=== PATIENT | female | born 1975 | race American Indian/Alaskan Native ===

== ENCOUNTER 2016-11-09 09:09 | Outpatient (CLI) | payer OTHER ==
--- NOTE | 2016-11-09 11:30 | Mammography Report ---
BILATERAL MAMMOGRAM: No previous studies available. CAD study utilized. FINDINGS: Predominance of adipose tissue bilaterally. No mass or microcalcification. Benign and intramammary axillary nodes. IMPRESSION: Benign findings. Annual follow-up recommended. BI-RADS CATEGORY: 2 = Benign ACR BI-RADS MAMMOGRAPHIC CODES: 0 = Needs additional imaging evaluation; 1 = Negative; 2 = Benign; 3 = Probably benign; 4 = Suspicious; 5 = Malignant; 6 = Known biopsy-proven malignancy COMMENT: 1. Dense breast tissue, i.e., adenosis, fibrocystic changes, etc., may obscure an underlying neoplasm. 2. Approximately 10% of cancers are not detected with mammography. 3. A negative mammography report should not delay biopsy if a clinically suspicious mass is present. COMMENT: Patient follow-up letters are generated in [employer].
== END 2016-11-09 09:10 | disposition home or self-care (01) ==
LOC: MAMMO 09:09
PROVIDERS: ATTEND Obstetrics & Gynecology
DX: Z12.31 Encounter for screening mammogram for malignant neoplasm of breast (principal)
CPT/HCPCS: 77067; G0202

== ENCOUNTER 2017-11-15 12:18 | Outpatient (CLI) | payer OTHER ==
--- NOTE | 2017-11-16 11:56 | Mammography Report ---
BILATERAL DIGITAL SCREENING MAMMOGRAM with CAD: 11/15/17 12:18:00 CLINICAL: Routine screening. COMPARISON:11/09/16 FINDINGS: The breasts are heterogeneously dense, which may obscure small masses. No mass, architectural distortion or suspicious calcifications. IMPRESSION: No mammographic evidence of malignancy. BI-RADS CATEGORY: 1 - - Negative RECOMMENDATION: Routine mammographic screening in one year. COMMENT: Patient follow-up letters are generated by our [employer] application.
== END 2017-11-15 12:19 | disposition home or self-care (01) ==
LOC: MAMMO 12:18
PROVIDERS: ATTEND Obstetrics & Gynecology
DX: Z12.31 Encounter for screening mammogram for malignant neoplasm of breast (principal)
CPT/HCPCS: 77067

== ENCOUNTER 2018-12-21 07:55 | Outpatient (CLI) | payer OTHER ==
--- NOTE | 2018-12-21 09:56 | Mammography Report ---
BILATERAL MAMMOGRAM: FINDINGS: There are scattered fibroglandular densities (approximately 25%-50% glandular). No mass, distortion, suspicious calcification, or skin change is seen. There is no interval change compared to prior exams dated back to October 2016. CAD was utilized. IMPRESSION: Negative mammogram. There is no mammographic evidence of malignancy. RECOMMENDATION: Follow-up per ACS guidelines. BI-RADS CATEGORY: 1 = Negative ACR BI-RADS MAMMOGRAPHIC CODES: 0 = Needs additional imaging evaluation; 1 = Negative; 2 = Benign; 3 = Probably benign; 4 = Suspicious; 5 = Malignant; 6 = Known biopsy-proven malignancy COMMENT: 1. Dense breast tissue, i.e., adenosis, fibrocystic changes, etc., may obscure an underlying neoplasm. 2. Approximately 10% of cancers are not detected with mammography. 3. A negative mammography report should not delay biopsy if a clinically suspicious mass is present. COMMENT: Patient follow-up letters are generated in [employer].
== END 2018-12-21 07:56 | disposition home or self-care (01) ==
LOC: MAMMO 07:55
PROVIDERS: ATTEND Obstetrics & Gynecology
DX: Z12.31 Encounter for screening mammogram for malignant neoplasm of breast (principal)
CPT/HCPCS: 77067

== ENCOUNTER 2021-08-12 07:02 | Day surgery (SDC) | payer OTHER ==
[2021-08-12] MEDS ORDERED: LACTATED RINGERS 1,000 ML ONE (08:12)
[2021-08-12] MEDS ORDERED: HYDROmorphone 1 MG/1 ML INJ IV PRN ×2 (08:13)
[2021-08-12] MEDS ORDERED: ONDANSETRON 4 MG/2 ML INJ IV PRN (08:13)
--- NOTE | 2021-08-12 08:13 | Anesthesia Day of Surgery ---
Anesthesia Day of Surgery - Day of Surgery Patient Examined: Yes Patient H&P Reviewed: Yes Patient is NPO: Yes
--- NOTE | 2021-08-12 08:14 | Anesthesia Consultation ---
Anesthesia Consult and Med Hx Date of service: 08/12/21 - Airway Anesthetic Teeth Evaluation: Good (Veneers) ROM Head & Neck: Adequate Mental/Hyoid Distance: Adequate Mallampati Class: Class II Intubation Access Assessment: Good - Pre-Operative Health Status ASA Pre-Surgery Classification: ASA1 Proposed Anesthetic Plan: General - Pulmonary Hx Smoking: No Hx Sleep Apnea: No - Cardiovascular System Hx Hypertension: No Hx Heart Attack/AMI: No - Central Nervous System Hx Seizures: No Hx Back Pain: No Hx Psychiatric Problems: Yes (Depression) - Endocrine Hx End Stage Renal Disease: No Hx Liver Disease: No - Hematic Hx Anemia: No Hx Sickle Cell Disease: No - Other Systems Hx Alcohol Use: No Hx Substance Use: No Hx Cancer: No Hx Obesity: No
--- NOTE | 2021-08-12 08:44 | Short Stay Summary ---
Short Stay Documentation Date of service: 08/12/21 Narrative H&P: 45-year-old G0 who presents with a history of severe cervical dysplasia. The patient had a Pap demonstrating high-grade squamous intraepithelial lesion. Her colposcopy confirmed positive endocervical curettings with high-grade dysplasia. - History Principal diagnosis: Cervical dysplasia Past Medical History: No medical history Past Surgical History: Other (Foot surgery) Social history: single - Allergies and Medications Current Medications: Allergies No Known Allergies Allergy (Unverified 11/09/16 09:10) Home Medications Medication Instructions Recorded Confirmed Last Taken Type Loestrin 1 tab PO DAILY 08/05/21 Unknown History One-Daily Multi Caps 1 cap PO DAILY 08/05/21 08/05/21 Unknown History Vitamin D (Nf) 1,000 units PO DAILY 08/05/21 08/05/21 Unknown History Active Medications Hydromorphone HCl (Hydromorphone 1 Mg/1 Ml Inj) 0.25 mg IV Q10MIN PRN PRN Reason: Pain, Moderate (4-6) Hydromorphone HCl (Hydromorphone 1 Mg/1 Ml Inj) 0.5 mg IV Q10MIN PRN PRN Reason: Pain , Severe (7-10) Lactated Ringer's (Lactated Ringers) 1,000 mls @ 125 mls/hr IV DIRECT DEANDRE Midazolam HCl (Midazolam 2 Mg/2 Ml Inj) 2 mg IV PREOP NR Stop: 08/12/21 23:59 Ondansetron HCl (Ondansetron 4 Mg/2 Ml Inj) 4 mg IV ONCE PRN PRN Reason: Nausea And Vomiting - Physical exam General appearance: no acute distress Integumentary: no rash HEENT: Atraumatic Lungs: Clear to auscultation Breasts: deferred Heart: Regular rate Gastrointestinal: normal Female Genitourinary: deferred Rectal Exam: deferred - Brief post op/procedure progress note Date of procedure: 08/12/21 Pre-op diagnosis: Cervical dysplasia Post-op diagnosis: same Procedure: Loop electrocautery excision Endocervical curettage Anesthesia: GETA Surgeon: CHRISTIANO HARRIS Estimated blood loss: 50-100ml Pathology: list (Ectocervix and endocervical curettings) Specimen disposition: to lab Condition: stable - Hospital course Hospital course: The patient was admitted the day of surgery underwent a LEEP procedure. Please see operative note for details of surgery. Her postoperative course was uneventful. - Disposition Condition at discharge: Good Disposition: 01 HOME / SELF CARE / HOMELESS Short Stay Discharge Plan Activity: other (Pelvic rest for 4 weeks) Diet: regular Additional Instructions: Patient may schedule follow-up with Dr. Harris in 2 to 4 weeks
[2021-08-12] MEDS ORDERED: ceFAZolin/Water 2 GM/20 ML 2 GM/20 ML SYRINGE IV NR (09:00)
[2021-08-12] MEDS ORDERED: MIDAZOLAM 2 MG/2 ML INJ IV NR (09:00)
[2021-08-12] MEDS ORDERED: LIDOCAINE MPF (2%) 20 MG/1 ML VIAL 5 ML ONE (09:17)
[2021-08-12] MEDS ORDERED: dexAMETHasone 20 MG/5 ML VIAL ONE (09:17)
[2021-08-12] MEDS ORDERED: KETOROLAC 30 MG/1 ML INJ ONE ×2 (09:17→10:07)
[2021-08-12] MEDS ORDERED: ONDANSETRON 4 MG/2 ML INJ ONE (09:17)
[2021-08-12] MEDS ORDERED: fentaNYL 100 MCG/2 ML INJ ONE (09:18)
[2021-08-12] MEDS ORDERED: propofoL 200 MG/20 ML VIAL IV ONE (09:18)
[2021-08-12] MEDS ORDERED: POTASSIUM IODIDE/IODINE (LUGOLS) 30 ML TP ONE ×2 (09:21→10:00)
[2021-08-12] MEDS ORDERED: FERRIC SUBSULFATE TOPICAL SOLN 8 ML TP ONE ×2 (09:21→10:00)
[2021-08-12] MEDS ORDERED: LIDOCAINE 1%/EPINEPHRINE 1:100,000 VIAL (20 ML) INFILTRATI ONE ×2 (09:54→10:00)
[2021-08-12] MEDS ORDERED: LACTATED RINGERS 1,000 ML IV SCH (10:00)
[2021-08-12] MEDS ORDERED: SODIUM CHLORIDE 0.9% IRR 1,500 ML BOTTLE IR ONE (10:00)
--- NOTE | 2021-08-12 10:13 | Operative Report ---
Operative Report Operative Report: Date of procedure: August 12, 2021 Pre-operative diagnosis: Cervical dysplasia; high-grade squamous intraepithelial lesion Post-operative diagnosis: Same as above Procedure name(s): Loop electrocautery excision procedure; endocervical curettings Surgeon: Annamaria Woody M.D. Estimated blood loss: Less than 100 mL Anesthesia: LMA Findings Nulliparous cervix Indication: 45-year-old G0 who presents with cervical dysplasia. Procedure Patient was taken to the operating room and given LMA as anesthesia. She is prepped and draped in a normal sterile fashion. Timeout was performed that identified the patient and the procedure. A coated bivalve speculum was placed in the patient's vagina. Ten milliliters of lidocaine with epinephrine were injected for paracervical block. The cervix was painted with Lugol solution. The 20 x 15 mm loop was used to excise the ectocervix. An additional cervical excision of the endocervical canal was performed. An endocervical curettage was then performed. The cervical bed was cauterized. Monsel solution was placed in the cervical bed. There was no evidence of any active bleeding at the conclusion of the case. The vaginal instruments were then removed atraumatically. The patient was successfully extubated and taken to recovery room in stable condition.
--- NOTE | 2021-08-12 16:06 | Post Anesthesia Evaluation ---
- Post Anesthesia Evaluation Patient Participated: Yes Airway Patent: Yes Stable Respiratory Function: Yes Nausea/Vomiting: No Temp > 96.8F: Yes Pain Manageable: Yes Adequeate Hydration: Yes Anesthesia Complications: No Block Receding Appropriately: Not Applicable Patient on Ventilator: No
[2021-08-12 19:19] VITALS: BP 120/72
== END 2021-08-12 11:50 | disposition home or self-care (01) ==
LOC: OR 07:02
PROVIDERS: ATTEND Obstetrics & Gynecology
DX: N87.9 Dysplasia of cervix uteri, unspecified (principal); R87.613 High grade squamous intraepithelial lesion on cytologic smear of cervix (HGSIL); F32.9 Major depressive disorder, single episode, unspecified; Z79.899 Other long term (current) drug therapy; Z98.890 Other specified postprocedural states
CPT/HCPCS: 57522; 81025; 88305; 88307; J0690; J1100; J1885; J2250; J2405; J2704; J3010; J7120